=== PATIENT | male | born 1990 | race Hispanic/Latino ===

== ENCOUNTER 2022-07-10 20:27 | Emergency (ER) | payer BC ==
[2022-07-10] MEDS ORDERED: Silver Sulfadiazine 50 GM TUBE ONE (20:45)
[2022-07-10] MEDS ORDERED: HYDROcodone/Acetaminophen 10/325 mg Tablet ONE (20:52)
== END 2022-07-10 21:24 | disposition home or self-care (01) ==
LOC: ERS 20:27
DX: T23.232A Burn of second degree of multiple left fingers (nail), not including thumb, initial encounter (principal); T23.202A Burn of second degree of left hand, unspecified site, initial encounter; T31.0 Burns involving less than 10% of body surface; X12.XXXA Contact with other hot fluids, initial encounter
CPT/HCPCS: 16020

== ENCOUNTER 2023-03-08 16:36 | Emergency (ER) | payer BC, OTHER | END 2023-03-08 19:54 | disposition home or self-care (01) | LOC: ERS 16:36 | DX: I10 Essential (primary) hypertension (principal); V49.60XA Unspecified car occupant injured in collision with unspecified motor vehicles in traffic accident, initial encounter | CPT/HCPCS: 71045; 72125 ==